=== PATIENT | female | born 2000 | race Caucasian/White ===

== ENCOUNTER 2025-05-21 20:18 | Emergency (ER) | payer OTHER ==
[~2025-05-21] VITALS: Ht 177.8 cm; Wt 102.3 kg
[2025-05-21 20:20] VITALS: BP 136/88; TEMP 97.7; O2SAT 99
[2025-05-21] MEDS ORDERED: ACET-683 PO (20:25)
== END 2025-05-21 21:47 | disposition home or self-care (01) ==
LOC: M ED 20:18
DX: S93.401A Sprain of unspecified ligament of right ankle, initial encounter (principal); R22.41 Localized swelling, mass and lump, right lower limb; W01.198A Fall on same level from slipping, tripping and stumbling with subsequent striking against other object, initial encounter; Y92.009 Unspecified place in unspecified non-institutional (private) residence as the place of occurrence of the external cause; Y93.89 Activity, other specified; Y99.9 Unspecified external cause status; Z79.1 Long term (current) use of non-steroidal anti-inflammatories (NSAID)